=== PATIENT | male | born 1970 | race Caucasian/White ===

== ENCOUNTER 2016-10-25 00:23 | Inpatient (IN) | payer MEDICAID, OTHER ==
[~2016-10-25] VITALS: Ht 162.6 cm; Wt 74.4 kg
[2016-10-25] MEDS ORDERED: SODIUM CHLORIDE 0.9% 1,000 ML IV ONE (02:23)
[2016-10-25] MEDS ORDERED: KETOROLAC 30MG/ML VIAL IV ONE (02:30)
[2016-10-25] MEDS ORDERED: PIPERACILLIN/TAZ 3.375G PREMIX 50 ML IV ONE (02:30)
[2016-10-25 02:33] LABS: BASOPHILS % 0.5 % (0.0-2.0); EOSINOPHILS % 0.8 % (0.0-5.0); HEMATOCRIT. 47.1 % (42.0-52.0); HEMOGLOBIN. 16.5 g/dL (14.0-18.0); LYMPHOCYTES % 11.6 % (20.0-50.0); MEAN CORPUSCULAR HEMOGLOBIN 33.8 pg (28.0-32.0); MEAN CORPUSCULAR VOLUME 96.5 fL (80.0-94.0); MEAN PLATELET VOLUME 8.7 fl (7.4-10.4); MONOCYTES % 8.2 % (2.0-8.0); NEUTROPHILS % 78.9 % (40.0-76.0); PLATELET 294 x1000/uL (130-400); PROTHROMBIN TIME 10.3 sec (9.4-11.6); RED BLOOD CELL COUNT 4.89 mill/uL (4.7-6.1); RED CELL DISTRIBUTION WIDTH 12.7 % (11.6-14.6)
[2016-10-25 02:43] LABS: CARBON DIOXIDE 28 mEq/L (21-32); CHLORIDE 97 mEq/L (98-107)
[2016-10-25 02:51] LABS: CLARITY URINE CLEAR (CLEAR); COLOR URINE YELLOW (YELLOW); KETONES URINE NEGATIVE (NEGATIVE); LEUKOCYTE ESTERASE URINE NEGATIVE (NEGATIVE); NITRITE URINE NEGATIVE (NEGATIVE); OCCULT BLOOD URINE NEGATIVE (NEGATIVE); PH URINE 5.5 (4.5-8.0); PROTEIN URINE TRACE (NEGATIVE); SPECIFIC GRAVITY URINE 1.033 (1.005-1.030)
[2016-10-25] MEDS ORDERED: MORPHINE SULFATE 4 MG/ML CPJ (NOT FOR IM USE) IV ONE (05:45)
[2016-10-25] MEDS ORDERED: ONDANSETRON HCL 4MG/2ML VIAL IV ONE (05:45)
[2016-10-25] MEDS ORDERED: DIPHENHYDRAMINE 50MG/ML VIAL IV PRN (07:15)
[2016-10-25] MEDS ORDERED: NA PHOS,M-B/NA PHOS,DI-BA ENEMA 118ML PR PRN (07:15)
[2016-10-25] MEDS ORDERED: ONDANSETRON HCL 4MG/2ML VIAL IV PRN (07:15)
[2016-10-25] MEDS ORDERED: LORAZEPAM 2MG/ML CPJ IV PRN (07:15)
[2016-10-25] MEDS ORDERED: DOCUSATE SODIUM 100MG CAPSULE PO PRN (07:15)
[2016-10-25] MEDS ORDERED: GUAIFENESIN 200MG/10ML SUGAR FREE UDC PO PRN (07:15)
[2016-10-25] MEDS ORDERED: IPRATROPIUM/ALBUTEROL 0.5-3(2.5)MG/3ML NEB INH PRN (07:15)
[2016-10-25] MEDS ORDERED: MAGNESIUM/ALUMINUM HYDROXIDE/SIMETHICONE 30ML UDC PO PRN (07:15)
[2016-10-25] MEDS ORDERED: ACETAMINOPHEN 325MG TABLET PO PRN (07:15)
[2016-10-25] MEDS ORDERED: HYDROMORPHONE HCL/PF 2MG/ML CPJ IV PRN (07:15)
[2016-10-25] MEDS: ASPIRIN 81MG EC TABLET PO SCH (09:45)
[2016-10-25] MEDS: FUROSEMIDE 40MG/4ML VIAL IV SCH (09:45)
[2016-10-25] MEDS: CLONIDINE 0.1MG TABLET PO PRN ×2 (09:46→17:12)
[2016-10-25] MEDS: ENOXAPARIN 40MG/0.4ML SYR SUBCUT SCH (09:46)
[2016-10-25] MEDS: HYDROCODONE/APAP 7.5/325MG 1 TAB TABLET PO PRN ×3 (09:47→21:57)
[2016-10-25] MEDS ORDERED: VANCOMYCIN 1,500 MG in DEXT 5% WATER 250 ML IV SCH (10:30)
[2016-10-25] MEDS: PIPERACILLIN/TAZ 3.375G PREMIX 50 ML IV SCH ×3 (11:14→21:50)
[2016-10-25] MEDS ORDERED: DEXTROSE 50% WATER 50ML SYRINGE IV PRN (13:00)
[2016-10-25 13:24] LABS: CARBON DIOXIDE 27 mEq/L (21-32); CHLORIDE 99 mEq/L (98-107)
[2016-10-25] MEDS: INSULIN LISPRO 100 UNITS/ML SUBCUT SCH ×3 (13:53→22:27)
[2016-10-25] MEDS: BLOOD SUGAR DIAGNOSTIC STRIP TEST SCH ×2 (17:12→22:00)
[2016-10-25] MEDS ORDERED: INSULIN LISPRO 100 UNITS/ML SUBCUT SCH (17:50)
[2016-10-25] MEDS: VANCOMYCIN 1 G PREMIX 200 ML IV SCH (22:24)
[2016-10-26] MEDS: PIPERACILLIN/TAZ 3.375G PREMIX 50 ML IV SCH ×3 (04:27→17:57)
[2016-10-26] MEDS: HYDROCODONE/APAP 7.5/325MG 1 TAB TABLET PO PRN ×3 (04:40→17:46)
[2016-10-26] MEDS: VANCOMYCIN 1 G PREMIX 200 ML IV SCH ×3 (05:00→21:09)
[2016-10-26 06:11] LABS: BASOPHILS % 0.5 % (0.0-2.0); EOSINOPHILS % 1.3 % (0.0-5.0); HEMATOCRIT. 40.7 % (42.0-52.0); LYMPHOCYTES % 18.6 % (20.0-50.0); MEAN CORPUSCULAR HEMOGLOBIN 32.9 pg (28.0-32.0); MEAN CORPUSCULAR VOLUME 95.7 fL (80.0-94.0); MEAN PLATELET VOLUME 8.2 fl (7.4-10.4); MONOCYTES % 10.1 % (2.0-8.0); NEUTROPHILS % 69.5 % (40.0-76.0); PLATELET 267 x1000/uL (130-400); RED BLOOD CELL COUNT 4.25 mill/uL (4.7-6.1); RED CELL DISTRIBUTION WIDTH 12.2 % (11.6-14.6)
[2016-10-26] MEDS: BLOOD SUGAR DIAGNOSTIC STRIP TEST SCH ×4 (07:42→21:39)
[2016-10-26 08:37] LABS: CHLORIDE 97 mEq/L (98-107)
[2016-10-26 08:45] LABS: CARBON DIOXIDE 27 mEq/L (21-32); HDL CHOLESTEROL 49 mg/dL (40-59); LDL CHOLESTEROL 59 mg/dL (5-100)
[2016-10-26] MEDS: INSULIN LISPRO 100 UNITS/ML SUBCUT SCH ×4 (08:49→21:47)
[2016-10-26] MEDS: FUROSEMIDE 40MG/4ML VIAL IV SCH (08:50)
[2016-10-26] MEDS: ASPIRIN 81MG EC TABLET PO SCH (08:51)
[2016-10-26] MEDS: ENOXAPARIN 40MG/0.4ML SYR SUBCUT SCH (08:54)
[2016-10-27] MEDS: PIPERACILLIN/TAZ 3.375G PREMIX 50 ML IV SCH ×3 (00:04→09:07)
[2016-10-27] MEDS: HYDROCODONE/APAP 7.5/325MG 1 TAB TABLET PO PRN ×3 (02:03→12:52)
[2016-10-27] MEDS: VANCOMYCIN 1 G PREMIX 200 ML IV SCH ×2 (06:46→12:51)
[2016-10-27] MEDS: BLOOD SUGAR DIAGNOSTIC STRIP TEST SCH ×2 (07:58→13:18)
[2016-10-27] MEDS: ASPIRIN 81MG EC TABLET PO SCH (09:07)
[2016-10-27] MEDS: ENOXAPARIN 40MG/0.4ML SYR SUBCUT SCH (09:07)
[2016-10-27] MEDS: FUROSEMIDE 40MG/4ML VIAL IV SCH (09:07)
[2016-10-27] MEDS: INSULIN LISPRO 100 UNITS/ML SUBCUT SCH ×2 (09:13→13:24)
[2016-10-27 12:52] VITALS: BP 120/82
[2016-10-27] MEDS ORDERED: MICONAZOLE NITRATE 2% OINT 71GM TOP SCH (14:00)
== END 2016-10-27 15:32 | disposition home or self-care (01) | DRG 720 ==
LOC: ER 03:17 → 6EST 03:41 → ENRESERV 07:17
PROVIDERS: ADMIT Internal Medicine; ATTEND Internal Medicine
DX: A41.9 Sepsis, unspecified organism (principal); I10 Essential (primary) hypertension; E86.0 Dehydration; F17.210 Nicotine dependence, cigarettes, uncomplicated; L03.90 Cellulitis, unspecified; R73.9 Hyperglycemia, unspecified
CPT/HCPCS: 36415; 71010; 80048; 80053; 80061; 81001; 82962; 83605; 85025; 85610; 87040; 87086; 93005; 96365; 96375; 99285; J1170; J1650; J1815; J1885; J1940; J2270; J2405; J2543; J3370; J7030; J7040; J7060